=== PATIENT | female | born 1970 | race Caucasian/White ===

== ENCOUNTER 2018-10-30 07:37 | Emergency (ER) | payer OTHER ==
[~2018-10-30] VITALS: Ht 165.1 cm; Wt 77.3 kg
[2018-10-30] MEDS ORDERED: VITAD1000 PO (08:09)
[2018-10-30] MEDS ORDERED: HYDR-4069 PO (08:09)
[2018-10-30 09:30] VITALS: BP 118/72
== END 2018-10-30 10:02 | disposition home or self-care (01) ==
LOC: EMS 07:38
DX: J06.9 Acute upper respiratory infection, unspecified (principal)